=== PATIENT | female | born 1965 | race Caucasian/White ===

== ENCOUNTER 2019-10-21 22:25 | Inpatient (IN) | payer MEDICAID ==
[~2019-10-21] VITALS: Ht 152.4 cm; Wt 81.9 kg
[2019-10-21 22:44] VITALS: Ht 152.4 cm; Wt 81.9 kg
--- NOTE | 2019-10-21 23:00 | NUR ---
PT BIB FAMILY C/O EPIGASTRIC PAIN AND NAUSEA X5 HRS S/P EATING PIZZA. 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 NO VOMITING NOTED AT THIS TIME. PT IS AAOX4, NO DISTRESS NOTED, RESP E/U, SKIN INTACT, WARM, AND DRY. PT GOWNED, PLACED ON FULL CM, NSR, VSS. BED IN LOWEST POSITION, SIDERAIL X2 UP FOR SAFTEY, CALL ARANDA WITHIN REACH. AWAITING MSE BY . WILL CONT TO MONITOR.
--- NOTE | 2019-10-21 23:30 | NUR ---
EKG IN PROGRESS AT THE BEDSIDE BY EMT BRITTANY
[2019-10-21 23:50] LABS: BASOPHIL % 0.3 % (0-2); PLATELET COUNT 270 x10^3mcL (130-400); RED CELL DISTRIBUTION WIDTH 13.7 % (11.5-14.5)
[2019-10-22 00:10] LABS: CALCIUM 8.9 mg/dL (8.5-10.1); CARBON DIOXIDE 22.4 mmol/L (21-32); CHLORIDE SERUM 107 mmol/L (98-107); CREATININE SERUM 0.8 mg/dL (0.6-1.0); GFR1 > 60 mL/min; GLUCOSE SERUM 140 mg/dL (74-106); POTASSIUM SERUM 3.5 mmol/L (3.5-5.1); SODIUM SERUM 142 mmol/L (136-145)
[2019-10-22 00:14] LABS: ALBUMIN 3.4 g/dL (3.4-5.0); ALKALINE PHOSPHATASE 83 U/L (46-116); ALT/SGPT 97 U/L (14-59); AST/SGOT 112 U/L (15-37); BILIRUBIN TOTAL 0.3 mg/dL (0.20-1.00); LIPASE 171 IU/L (73-393); TOTAL PROTEIN, SERUM 7.1 g/dL (6.4-8.2)
--- NOTE | 2019-10-22 00:37 | NUR ---
PT REPORTS IMPROVED PAIN, STATES PAIN IS 4/10 AT THIS TIME. PT IN POSITION OF COMFORT, NO DISTRESS NOTED, RESP E/U. CALL ARANDA WITHIN REACH, WILL CONT TO MONITOR. DAUGHTER AT THE BEDSIDE.
--- NOTE | 2019-10-22 01:43 | NUR ---
MEDICATED PT PER MD ORDERS, SEE EMAR. PT VERBALIZED UNDERSTANDING OF MEDICATION TEACHING. PT IN POSITION OF COMFORT LAYING IN THE GUERNEY, NO DISTRESS NOTED, RESP E/U, PT ON FULL CM, NSR, VSS. WILL CONT TO MONITOR.
--- NOTE | 2019-10-22 02:36 | NUR ---
PT DENIES ANY PAIN AT THIS TIME. PT IN POSTION OF COMFORT, NO DISTRESS NOTED, RESP E/U. DUAGHTER AT THE BEDSIDE. WILL CONT TO MONITOR.
--- NOTE | 2019-10-22 03:40 | NUR ---
XRAY AT THE BEDSIDE.
[2019-10-22 04:00] LABS: CHOLESTEROL/HDL RATIO 4.5
[2019-10-22 04:10] LABS: FREE T4 1.16 ng/dL (0.76-1.46); FREE THYROXINE INDEX 3.7 ug/dL (1.4-4.5); T4(THYROXINE) 10.1 ug/dL (4.7-13.3)
[2019-10-22 04:13] LABS: T3 TOTAL 1.54 ng/mL
--- NOTE | 2019-10-22 05:07 | NUR ---
INFORMED PATIENT THAT SHE WILL BE MOVED TO [facility] AFTER CHANGE OF SHIFT AT 0700. IV FLUIDS INFUSING, NO INFILTRATION OR PAIN NOTED TO IV SITE. PT AWARE SHE IS NPO AT THIS TIME. PT IS IN POSITION OF COMFORT LAYING IN BED, DENIES ANY PAIN AT THIS TIME. PT IS AAOX4, NO DISTRESS NOTED, RESP E/U, SKIN REMAINS UNCHANGED FROM INITIAL ASSESSMENT. PT ON FULL CM, NSR, VSS, SAFETY PRECAUTIONS ON PALCE, WILL CONT TO MONITOR.
--- NOTE | 2019-10-22 06:30 | NUR ---
PT SLEEPING WITH EYES CLOSED, EASILY AROUSABLE, NO DISTRESS NOTED, RESP E/U. PT ON FULL CM, VSS, WILL CONT TO MONITOR
[2019-10-22 06:34] LABS: microscopic required? NO
[2019-10-22 07:09] LABS: BASOPHIL % 0.3 % (0-2); PLATELET COUNT 227 x10^3mcL (130-400); RED CELL DISTRIBUTION WIDTH 13.7 % (11.5-14.5)
--- NOTE | 2019-10-22 07:24 | NUR ---
REPORT GIVEN TO KENROY GARCIA
[2019-10-22 07:26] LABS: urine erythrocyte NEGATIVE (NEGATIVE)
--- NOTE | 2019-10-22 07:28 | NUR ---
REPORT GIVEN TO ROSEANN ON [facility] WHO WILL ASSUME FURTHER CARE OF THIS PATIENT.
[2019-10-22 07:37] LABS: ALKALINE PHOSPHATASE 70 U/L (46-116); ALT/SGPT 90 U/L (14-59); AST/SGOT 93 U/L (15-37); CALCIUM 8.5 mg/dL (8.5-10.1); CHLORIDE SERUM 109 mmol/L (98-107); CREATININE SERUM 0.8 mg/dL (0.6-1.0); GFR1 > 60 mL/min; GLUCOSE SERUM 105 mg/dL (74-106); POTASSIUM SERUM 3.6 mmol/L (3.5-5.1); SODIUM SERUM 143 mmol/L (136-145); TOTAL PROTEIN, SERUM 6.3 g/dL (6.4-8.2)
--- NOTE | 2019-10-22 08:15 | NUR ---
RECEIVED PT FROM ED VIA TRINO. AA/OX4. AMBULATORY WITH FULL ROM. GAIT STEADY. C/O CONTINUOUS RUQ ABD. PAIN, DESCRIBES BURNING. PAIN WORSE W/ PALPATION W/ INT. N/V. DENIES N/V. AT THIS TIME. RATES PAIN 04/23. WILL MEDICATION PRN. SEE MAR. NO S/S OF ACUTE DISTRESS. NO CHEST PAIN. MED SURG. NO SOB ON ROOM AIR. VS STABLE. CALM/COOPERATIVE. SKIN WARM, DRY, INTACT. IV WNL TO LAC, 20 GAUGE. PATENT AND FLUSHES WELL. IVF FLOWING. ORIENTED TO SURROUNDINGS. SIDE RAILS UP X2. INSTRUCTED TO USE CALL LIGHT TO CALL FOR ASSISTANCE PRN. PT VERBALIZED UNDERSTANDING. AMISH WIPES COMPLETE. WILL CONT. NPO. PT VERBALIZED UNDERSTANDING. WILL CONT. TO MONITOR.
[2019-10-22 08:28] VITALS: BP 120/60
--- NOTE | 2019-10-22 10:47 | NUR ---
PT BEING TAKEN FOR PROCEDURE. AA/OX4. NO S/S OF ACUTE DISTRESS. C/O MILD ABD. PAIN TO RUQ, RATES 1/10, TOLERABLE AT THIS TIME. NO N/V. IV WNL TO LAC, SALINE LOCKED. NO CHEST PAIN. CALM/COOPERATIVE. SEE CHART FOR CONSENT/CHECKLIST. AMISH WIPES COMPLETE. VS STABLE. ENDORSED TO STRIPPER SOFT PLASTICRADHA PENN.
[2019-10-22 12:15] LABS: AMPHETAMINE QUAL UR NONE DETECTED (See below)
[2019-10-22 14:25] VITALS: BP 109/54
--- NOTE | 2019-10-22 14:31 | NUR ---
PT BACK FROM PROCEDURE. DROWSY, AROUSABLE TO VERBAL STIMUI. AA/OX4. NO S/S OF ACUTE DISTRESS. NO SOB ON ROOM AIR. RR EVEN/UNLABORED. O2 SAT 98%. CHEST EXPANSION SYMMETRICAL. NO CHEST PAIN. MED SURG. S/P [place], ABD. INCISIONS X5, CLOSED WITH SUTURES/GAYATHRI PER OR REPORT FROM RADAH PENN. COVERED BY BANDAIDS. CDI. IV WNL TO LAC, NO REDNESS, NO SWELLING, NO INFILTRATION. IV FLUIDS FLOWING. REPORTS MILD RUQ ABD. PAIN. RATES 2/10. DECLINED TO PAIN MED. REPORTS PAIN TOLERABLE AT THIS TIME. CALM/COOPERATIVE. INSTRUCTED TO USE CALL LIGHT TO CALL FOR ASSISTANCE PRN. PT VERBALIZED UNDERSTANDING. BED IN LOW POSITION. CALL LIGHT WITHIN REACH. WILL CONT. TO MONITOR.
--- NOTE | 2019-10-22 17:13 | NUR ---
Discount pharmacy card and list to low cost medical clinics given to patient by Trish.
[2019-10-22 17:20] VITALS: BP 119/56
--- NOTE | 2019-10-22 18:27 | NUR ---
PT AMBULATORY TO RESTROOM, VOID X1. DENIES PAIN/DIFFICULTY URINATING. GAIT SLOW/STEADY. DENIES ABD. PAIN AT THIS TIME. NO N/V. TOLERATING CLEAR LIQUID DIET WELL. NO CHEST PAIN. NO SOB ON ROOM AIR. IV WNL TO LAC, PATENT AND FLUSHES WELL. IVF FLOWING. AMBULATORY IN HALLWAY X1, GAIT STEADY. TOLERATING ACTIVITY WELL. ABD. INCISIONS X5, COVERED W/ BANDAIDS, CDI. NO S/S OF ACUTE DISTRESS. CALM/COOPERATIVE. FAMILY AT BEDSIDE. WILL ENDORSE TO ONCOMING SHIFT.
--- NOTE | 2019-10-22 18:58 | NUR ---
PT COMPLETE OF PAIN TO ABDOMINAL INCISIONS, RATES 5/10. WORSE AFTER ACTIVITY/AMBULATING HALLWAYS. GIVEN PO PAIN MED. SEE MAR. WILL ENDORSE TO NOC RN TO REASSESS PAIN. NO SOB ON ROOM AIR. NO CHEST PAIN. SCDS IN PLACE. IV WNL, IVF FLOWING. CALM/COOPERATIVE. BED IN LOW POSITION. CALL LIGHT WITHIN REACH. FAMILY AT BEDSIDE. WILL ENDORSE TO ONCOMING SHIFT.
[2019-10-22 19:47] VITALS: BP 118/62
--- NOTE | 2019-10-22 20:01 | NUR ---
PT'S INBED AAOX4 DENY PAIN AT THE MOMENT , LUNG SOUNDS CTA, ABD SOFT BS HYPOACTIVE PT;'S TOLERATING CURRENT DIET WELL , INCISIONS TO ABD X5 WITH BAND-AIDS C/D/I , PIV INTACT INFUSING WELL , CALLMLIGHT WITHIN PT;S REACH , WILL CON'T TO MONITOR AND ASSIST PT WITH CARE.
--- NOTE | 2019-10-23 03:14 | NUR ---
PT'S AWAKE AMBULATING ON THE HALLWAYS DENY PAIN AT THE MOMENT . PIV INTACT INFUSING WELL .
--- NOTE | 2019-10-23 05:26 | NUR ---
I HAVE REVIEWED THE DATA COLLECTION BY DIRECTOR OUTPATIENT SERVICES (NAME):RAKESH SKY ENTERED ON (DATE/TIME): I CONCUR WITH THE DATA AND ANY EXCEPTIONS OR COMMENTS ARE LISTED BELOW:
[2019-10-23 05:53] VITALS: BP 105/51
--- NOTE | 2019-10-23 06:24 | NUR ---
NO CHANGES OF CONDITION NOTED, PT'S IN BED DENY PAIN AT THE MOMENT ,. INCISIONS WITH BAND-AID C/D/I , PIV INTACT INFUSING NS AT 70ML/HR .
[2019-10-23 07:02] LABS: BASOPHIL % 0.2 % (0-2); PLATELET COUNT 287 x10^3mcL (130-400)
--- NOTE | 2019-10-23 07:15 | NUR ---
RECEIVED PT FROM [facility] CARMELO CAMERON. PT AA/OX4 LAYING IN BED. NO S/S OF ACUTE DISTRESS. NO C/O PAIN AT THIS TIME. C/O BLOATING, INSTRUCTED PT TO CONTINUE AMBULATING. PT VERBALIZED UNDERSTANDING. NO SOB ON ROOM AIR. NO CHEST PAIN. ABD. INCISIONS X5 COVERED BY BANDAIDS, CDI. PT REPORTS PASSING GAS ORALLY, NOT RECTALLY AT THIS TIME. NO N/V. REPORTS TOLERATING CLEAR LIQUID DIET WELL. NO FEVER. NO CHILLS. NO STONE. NO DIZZINESS. MED SURG. IV LEAKING TO LAC, IV REMOVED, CATHETER IN TACT. PRESSURE APPLIED. SITE WNL. IV INSERTED TO LFA, 22 GAUGE. PATENT WITH BLOOD RETURN. IVF FLOWING. BED IN LOW POSITION. CALL LIGHT WITHIN REACH. INSTRUCTED TO USE CALL LIGHT TO CALL FOR ASSISTANCE PRN. PT VERBALIZED UNDERSTANDING. WILL CONT. TO MONITOR.
[2019-10-23 07:45] LABS: RED CELL DISTRIBUTION WIDTH 14.6 % (11.5-14.5)
[2019-10-23 07:55] VITALS: BP 149/62
[2019-10-23 11:16] LABS: ALBUMIN 4.1 g/dL (3.4-5.0); ALKALINE PHOSPHATASE 105 U/L (46-116); ALT/SGPT 61 U/L (14-59); AST/SGOT 34 U/L (15-37); BILIRUBIN TOTAL 0.31 mg/dL (0.20-1.00); CALCIUM 9.6 mg/dL (8.5-10.1); CARBON DIOXIDE 24.7 mmol/L (21-32); CHLORIDE SERUM 99 mmol/L (98-107); CREATININE SERUM 0.9 mg/dL (0.6-1.0); GFR1 > 60 mL/min; GLUCOSE SERUM 235 mg/dL (74-106); POTASSIUM SERUM 4.6 mmol/L (3.5-5.1); SODIUM SERUM 140 mmol/L (136-145); TOTAL PROTEIN, SERUM 8.2 g/dL (6.4-8.2)
[2019-10-23 16:42] VITALS: BP 118/56
--- NOTE | 2019-10-23 17:02 | NUR ---
PT AMBULATING IN HALLWAYS. AA/OX4. NO C/O PAIN. NO SOB ON ROOM AIR. NO CHEST PAIN. NO N/V. NO CHILLS. NO FEVER. CALM/COOPERATIVE. IV WNL, IVF FLOWING. ACCOMPANIED BY FAMILY MEMBER. TOLERATING ACTIVITY WELL. WILL CONT. TO MONITOR.
--- NOTE | 2019-10-23 18:21 | NUR ---
PT COMPLAINT OF MODERATE ABDOMINAL PAIN TO ABDOMINAL INCISIONS, RATES 4/10, CONTINUOUS. WORSE AFTER AMBULATING. RELIEVED BY PAIN MED/RELAXATION. GIVEN PO PAIN MED SEE MAR. AA/OX4. LAYING IN BED. NO S/S OF ACUTE DISTRESS. TOLERATING FULL LIQUID DIET WELL. NO N/V/D. NO SOB ON ROOM AIR. NO CHEST PAIN. CALM/COOPERATIVE. IV WNL TO LFA, NO REDNESS, NO SWELLING, NO INFILTRATION. BANDAIDSS TO ABD. INCISIONS X5 CDI. VISITORS AT BEDSIDE. BED IN LOW POSITION. CALL LIGHT WITHIN REACH. WILL ENDORSE TO ONCOMING SHIFT.
[2019-10-23 20:57] VITALS: BP 146/78
--- NOTE | 2019-10-23 23:13 | NUR ---
RECEIVED PT IN BED AT 1945, PT HAD LARGE LOOSE STOOL . BS ACTIVE X4, ABD SOFT TENDER TO TOUCH , L ALEJANDRO SOUNDS CTA , PIV INTACT INFUSING WELL .
--- NOTE | 2019-10-24 02:10 | NUR ---
IN BED WITH EYES CLOSED , PIV INTACT INFUSING WELL.
--- NOTE | 2019-10-24 06:25 | NUR ---
NO CHANGES OF CONDITION NOTED, ALL DUE MEDS GIVEN NO REACTION NOTED, PIV INTACT INFUSING WELL , INCISIONS CDI, PT';S AWAKE WILMER PAIN
[2019-10-24 06:28] LABS: BASOPHIL % 0.3 % (0-2); PLATELET COUNT 196 x10^3mcL (130-400)
[2019-10-24 06:55] LABS: CALCIUM 8.8 mg/dL (8.5-10.1); CARBON DIOXIDE 28.3 mmol/L (21-32); CHLORIDE SERUM 109 mmol/L (98-107); CREATININE SERUM 0.8 mg/dL (0.6-1.0); GFR1 > 60 mL/min; GLUCOSE SERUM 121 mg/dL (74-106); POTASSIUM SERUM 3.8 mmol/L (3.5-5.1); SODIUM SERUM 145 mmol/L (136-145)
--- NOTE | 2019-10-24 07:43 | NUR ---
RECEIVED PT REPORT FROM NIGHT NURSE. PT ALERT AND ORIENTED TIMES 4. RESPIRATIONS REGULAR. LUNG SOUNDS CLEAR BILATERALLY. DRESSINGS TO SURGICAL INCISIONS DRY AND INTACT. C/O HEADACHE. MEDICATED WITH NORCO. C/O SORE THROAT. WILL NOTIFY MD. PT REPORT LAST BM YESTERDAY. DIET HAS BEEN ADVANCED TO FULL LIQUID. PT ENCOURAGED TO AMBULATE.
[2019-10-24 08:46] VITALS: BP 132/66
--- NOTE | 2019-10-24 09:00 | NUR ---
AT 0900 - PT GIVEN COLACE SCHEDULED. PT STILL C/O STONE. GIVEN ICE PACK FOR STONE. AT 0930 - REPORTED TO MD ABOUT C/O SORE THROAT. ALSO, ASKED FOR AN ORDER FOR INCENTIVE SPIROMETER.
--- NOTE | 2019-10-24 11:00 | NUR ---
PT STILL C/O STONE. PT STATES THAT ICE PACK RELIEVED SOME OF THE STONE. UPDATED PT ON TALKING TO THE MD ABOUT PT'S STONE AND SORE THROAT. ALSO UPDATED PT ON DISCHARGE. PT REQUEST NOTE FOR WORK.
[2019-10-24] MEDS ORDERED: APAP/HYDROCODON1 T13 PO (12:09)
[2019-10-24] MEDS ORDERED: KEFLEX500 M1 PO (12:34)
[2019-10-24 12:48] VITALS: BP 132/70
[2019-10-24 13:23] VITALS: BP 132/70
--- NOTE | 2019-10-24 14:31 | NUR ---
DRESSING TO SURGICAL INCISIONS TO ABDOMEN CHANGED. PHOTO DOCUMENTED. PATIENT INSTRUCTED IN CARE OF INCISIONS, INCLUDING S/S OF INFECTIONS. PRINTED DISCHARGE INSTRUCTIONS GIVEN AND EXPLAINED TO PT. ELECTRONIC PRESCRIPTION HAS BEEN RECEIVED TO PREFERRED PHARMACY. IV CATHETER REMOVED AND INTACT. PT PREPARED FOR DISCHARGE.
--- NOTE | 2019-10-24 15:04 | NUR ---
PT DISCHARGED TO HOME WITH SON. PT WAS TAKEN TO LOBBY BY WHEELCHAIR.
== END 2019-10-24 14:50 | disposition home or self-care (01) | DRG 263 ==
LOC: ED 22:25 → MU 10-22 03:28
PROVIDERS: Emergency Medicine; Internal Medicine; Surgery; ADMIT Internal Medicine
PROC: 0FT44ZZ Resection of Gallbladder, Percutaneous Endoscopic Approach (ICD-10-PCS; principal; 2019-10-22 14:00)
DX: K80.00 Calculus of gallbladder with acute cholecystitis without obstruction (principal); K76.0 Fatty (change of) liver, not elsewhere classified; E11.9 Type 2 diabetes mellitus without complications; E78.5 Hyperlipidemia, unspecified; E66.9 Obesity, unspecified; Z68.34 Body mass index [BMI] 34.0-34.9, adult; Z79.84 Long term (current) use of oral hypoglycemic drugs
CPT/HCPCS: 82962; 84439; 90658; G0378; J0330; J0690; J1885; J2250; J2270; J2405; J2704; J3010; J3490; J7030; Q0092

== ENCOUNTER 2019-10-26 15:49 | Emergency (ER) | payer MEDICAID ==
[~2019-10-26] VITALS: Ht 154.9 cm; Wt 81.2 kg
[~2019-10-26 15:49] MED LIST: APAP/HYDROCODON1 T13 PO; KEFLEX500 M1 PO
[2019-10-26 16:14] VITALS: Ht 154.9 cm; Wt 81.2 kg
[2019-10-26 19:31] LABS: BASOPHIL % 0.2 % (0-2); PLATELET COUNT 326 x10^3mcL (130-400); RED CELL DISTRIBUTION WIDTH 13.4 % (11.5-14.5)
[2019-10-26 19:43] LABS: CALCIUM 9.5 mg/dL (8.5-10.1); CARBON DIOXIDE 27.9 mmol/L (21-32); CHLORIDE SERUM 96 mmol/L (98-107); CREATININE SERUM 0.9 mg/dL (0.6-1.0); GFR1 > 60 mL/min; GLUCOSE SERUM 126 mg/dL (74-106); POTASSIUM SERUM 3.9 mmol/L (3.5-5.1); SODIUM SERUM 134 mmol/L (136-145)
[2019-10-26 19:48] LABS: ALBUMIN 3.3 g/dL (3.4-5.0); ALKALINE PHOSPHATASE 158 U/L (46-116); ALT/SGPT 120 U/L (14-59); AST/SGOT 47 U/L (15-37); BILIRUBIN TOTAL 0.35 mg/dL (0.20-1.00); TOTAL PROTEIN, SERUM 8.1 g/dL (6.4-8.2)
[2019-10-26 21:40] VITALS: BP 141/84
== END 2019-10-26 21:40 | disposition home or self-care (01) ==
LOC: ED 15:49
PROVIDERS: Emergency Medicine
DX: K59.00 Constipation, unspecified (principal)
CPT/HCPCS: 36415